=== PATIENT | male | born 1965 | race Caucasian/White ===

== ENCOUNTER 2021-11-19 11:53 | Inpatient (IN) | payer SELFPAY ==
[~2021-11-19 11:53] MED LIST: EPINEPHrine 1 MG/10 ML SYRINGE ONE; SODIUM BICARB 8.4% 50 MEQ/50 ML SYRINGE IV ONE
[2021-11-19] MEDS ORDERED: dexAMETHasone 4 MG/ML VIAL IV ONE (13:38)
[2021-11-19] MEDS ORDERED: cefTRIAXone/NS 2 GM/100 ML 2 GM/100 ML BAG IV ONE (13:44)
[2021-11-19] MEDS ORDERED: AZITHROMYCIN/NS 500 MG/250 ML 500 MG/250 ML BAG IV ONE (13:44)
--- NOTE | 2021-11-19 13:44 | Emergency Department Report ---
HPI - General Chief Complaint: Dyspnea/Respdistress Time Seen by Provider: 11/19/21 13:25 - HPI HPI: 56-year-old male with history of CAD, CHF, and DM 2 brought in by EMS in respiratory distress with hypoxia. According to the EMS report, the patient has been ill for the past week with URI symptoms. He has been coughing up blood. His initial oxygen saturation on arrival by EMS was 86% on room air which improved to 95% on 3 L. He was noted to be afebrile with normal remaining vitals. When I speak to the patient he is in obvious respiratory distress. He states that for 1 week he had URI symptoms including cough and congestion as well as fever and body aches. Over the past couple days he has been coughing up phlegm and blood-tinged mucus. He is also developed significant shortness of breath at rest. He says he has been out of his diuretic for the past 3 months due to insurance issues. He is not vaccinated against COVID-19. He denies any associated headache, vision change, chest pain, abdominal pain, focal weakness, sensory changes, or any other notable complaints. It is very difficult for him to speak because of his respiratory distress and he can only speak and few word at a time and therefore further details of the HPI are highly limited due to his current clinical condition. ED Past Medical Hx - Past Medical History Previous Medical History?: Yes Hx Congestive Heart Failure: Yes Hx Diabetes: Yes ED Review of Systems ROS: Stated complaint: SOB Other details as noted in HPI Comment: Unobtainable due to pts medical conditions Physical Exam - Physical Exam Vital Signs: Vital Signs 11/19/21 11:58 Temperature 98.2 F Pulse Rate 99 H Respiratory 24 Rate Blood Pressure 150/85 [Right] O2 Sat by Pulse 99 Oximetry Physical Exam: GENERAL: Well developed and well nourished. Severe respiratory distress HEAD: Normocephalic. No obvious signs of trauma. ENT: Dry mucous membranes. EYES: Extraocular movements are intact. Pupils are equal round and reactive to light bilaterally NECK: Supple. Full ROM is intact. Trachea is midline. LUNGS: Severe respiratory distress with accessory muscle use. Equal chest rise bilaterally. There are scattered rales throughout the bilateral lung sullivan as well as rhonchi. No wheezes appreciated. CARDIOVASCULAR: Tachycardic but with regular rhythm. No murmurs or rubs. VASCULAR: Cap refill < 2 seconds. 2+ edema of the bilateral lung sullivan ABDOMEN: Abdomen is soft and nondistended. There is no significant tenderness, guarding or rebound. SKIN: Skin is warm and dry NEURO: Patient is awake, alert, and oriented but speaking only in a couple words at a time. ultrasound specialist II-XII grossly intact. No focal deficits. Normal motor and sensory exam throughout. MUSCULOSKELETAL: No obvious deformities. No significant tenderness. Normal ROM throughout. BACK/SPINE: No midline tenderness or step-offs of the C/T/L spine. No costovertebral angle tenderness. ED Course Vital Signs 11/19/21 11:58 Temperature 98.2 F Pulse Rate 99 H Respiratory 24 Rate Blood Pressure 150/85 [Right] O2 Sat by Pulse 99 Oximetry ED Medical Decision Making - Lab Data Result diagrams: 11/19/21 13:56 11/19/21 13:56 Lab Results 11/19/21 11/19/21 11/19/21 Range/Units 13:56 13:56 13:56 WBC 6.3 (4.5-11.0) K/mm3 RBC 6.06 H (3.65-5.03) M/mm3 Hgb 14.9 (11.8-15.2) gm/dl Hct 46.7 H (35.5-45.6) % MCV 77 L (84-94) fl MCH 25 L (28-32) pg MCHC 32 (32-34) % RDW 14.5 (13.2-15.2) % Plt Count 184 (140-440) K/mm3 Lymph % (Auto) 17.2 (13.4-35.0) % [place] % (Auto) 7.6 H (0.0-7.3) % Eos % (Auto) 0.1 (0.0-4.3) % Baso % (Auto) 0.2 (0.0-1.8) % Lymph # (Auto) 1.1 L (1.2-5.4) K/mm3 [place] # (Auto) 0.5 (0.0-0.8) K/mm3 Eos # (Auto) 0.0 (0.0-0.4) K/mm3 Baso # (Auto) 0.0 (0.0-0.1) K/mm3 Seg Neutrophils % 74.9 H (40.0-70.0) % Seg Neutrophils # 4.7 (1.8-7.7) K/mm3 PT (12.2-14.9) Sec. INR (0.87-1.13) APTT (24.2-36.6) Sec. D-Dimer (0-234) ng/mlDDU ABG pH (7.350-7.450) pH Units ABG pCO2 mm Hg ABG pO2 (80.0-90.0) mm Hg ABG HCO3 (20.0-26.0) mmol/L ABG O2 Saturation (95.0-99.0) % ABG O2 Content (0.0-44) ABG Base Excess (-2.0-3.0) mmol/L ABG Hemoglobin (14.0-18.0) gm/dl ABG Carboxyhemoglobin (0.0-5.0) % ABG Methemoglobin (0.0-1.5) % Oxyhemoglobin (95.0-99.0) % FiO2 % Sodium (137-145) mmol/L Potassium (3.6-5.0) mmol/L Chloride (98-107) mmol/L Carbon Dioxide (22-30) mmol/L Anion Gap mmol/L BUN (9-20) mg/dL Creatinine (0.8-1.3) mg/dL Estimated GFR ml/min BUN/Creatinine Ratio % Glucose (75-100) mg/dL Lactic Acid 3.60 H* (0.7-2.0) mmol/L Calcium (8.4-10.2) mg/dL Magnesium (1.7-2.3) mg/dL Ferritin (30.0-300.0) ng/mL Total Bilirubin (0.1-1.2) mg/dL Direct Bilirubin (0-0.2) mg/dL Indirect Bilirubin mg/dL AST (5-40) units/L ALT (7-56) units/L Alkaline Phosphatase (35-129) units/L Lactate Dehydrogenase (91-180) units/L Troponin T < 0.010 (0.00-0.029) ng/mL C-Reactive Protein (0.00-1.30) mg/dL NT-Pro-B Natriuret Pep (0-900) pg/mL Total Protein (6.3-8.2) g/dL Albumin (3.9-5) g/dL Albumin/Globulin Ratio % Lipase (13-60) units/L 11/19/21 11/19/21 11/19/21 Range/Units 13:56 13:56 13:56 WBC (4.5-11.0) K/mm3 RBC (3.65-5.03) M/mm3 Hgb (11.8-15.2) gm/dl Hct (35.5-45.6) % MCV (84-94) fl MCH (28-32) pg MCHC (32-34) % RDW (13.2-15.2) % Plt Count (140-440) K/mm3 Lymph % (Auto) (13.4-35.0) % [place] % (Auto) (0.0-7.3) % Eos % (Auto) (0.0-4.3) % Baso % (Auto) (0.0-1.8) % Lymph # (Auto) (1.2-5.4) K/mm3 [place] # (Auto) (0.0-0.8) K/mm3 Eos # (Auto) (0.0-0.4) K/mm3 Baso # (Auto) (0.0-0.1) K/mm3 Seg Neutrophils % (40.0-70.0) % Seg Neutrophils # (1.8-7.7) K/mm3 PT 14.8 (12.2-14.9) Sec. INR 1.05 (0.87-1.13) APTT 47.8 H (24.2-36.6) Sec. D-Dimer 880.43 H (0-234) ng/mlDDU ABG pH (7.350-7.450) pH Units ABG pCO2 mm Hg ABG pO2 (80.0-90.0) mm Hg ABG HCO3 (20.0-26.0) mmol/L ABG O2 Saturation (95.0-99.0) % ABG O2 Content (0.0-44) ABG Base Excess (-2.0-3.0) mmol/L ABG Hemoglobin (14.0-18.0) gm/dl ABG Carboxyhemoglobin (0.0-5.0) % ABG Methemoglobin (0.0-1.5) % Oxyhemoglobin (95.0-99.0) % FiO2 % Sodium 136 L (137-145) mmol/L Potassium 5.0 (3.6-5.0) mmol/L Chloride 99.0 (98-107) mmol/L Carbon Dioxide 16 L (22-30) mmol/L Anion Gap 26 mmol/L BUN 28 H (9-20) mg/dL Creatinine 2.0 H (0.8-1.3) mg/dL Estimated GFR 35 ml/min BUN/Creatinine Ratio 14 % Glucose 232 H 237 H (75-100) mg/dL Lactic Acid (0.7-2.0) mmol/L Calcium 9.1 (8.4-10.2) mg/dL Magnesium 2.60 H (1.7-2.3) mg/dL Ferritin (30.0-300.0) ng/mL Total Bilirubin 0.50 (0.1-1.2) mg/dL Direct Bilirubin 0.2 (0-0.2) mg/dL Indirect Bilirubin 0.3 mg/dL AST 88 H (5-40) units/L ALT 25 (7-56) units/L Alkaline Phosphatase 61 (35-129) units/L Lactate Dehydrogenase 720 H (91-180) units/L Troponin T (0.00-0.029) ng/mL C-Reactive Protein 33.10 H (0.00-1.30) mg/dL NT-Pro-B Natriuret Pep 1272 H (0-900) pg/mL Total Protein 9.0 H (6.3-8.2) g/dL Albumin 3.7 L (3.9-5) g/dL Albumin/Globulin Ratio 0.7 % Lipase 58 (13-60) units/L 11/19/21 11/19/21 Range/Units 13:56 14:52 WBC (4.5-11.0) K/mm3 RBC (3.65-5.03) M/mm3 Hgb (11.8-15.2) gm/dl Hct (35.5-45.6) % MCV (84-94) fl MCH (28-32) pg MCHC (32-34) % RDW (13.2-15.2) % Plt Count (140-440) K/mm3 Lymph % (Auto) (13.4-35.0) % [place] % (Auto) (0.0-7.3) % Eos % (Auto) (0.0-4.3) % Baso % (Auto) (0.0-1.8) % Lymph # (Auto) (1.2-5.4) K/mm3 [place] # (Auto) (0.0-0.8) K/mm3 Eos # (Auto) (0.0-0.4) K/mm3 Baso # (Auto) (0.0-0.1) K/mm3 Seg Neutrophils % (40.0-70.0) % Seg Neutrophils # (1.8-7.7) K/mm3 PT (12.2-14.9) Sec. INR (0.87-1.13) APTT (24.2-36.6) Sec. D-Dimer (0-234) ng/mlDDU ABG pH 7.413 (7.350-7.450) pH Units ABG pCO2 27.3 mm Hg ABG pO2 276.3 H (80.0-90.0) mm Hg ABG HCO3 17.1 L (20.0-26.0) mmol/L ABG O2 Saturation 99.5 H (95.0-99.0) % ABG O2 Content 20.5 (0.0-44) ABG Base Excess -5.9 L (-2.0-3.0) mmol/L ABG Hemoglobin 14.4 (14.0-18.0) gm/dl ABG Carboxyhemoglobin 1.0 (0.0-5.0) % ABG Methemoglobin 0.6 (0.0-1.5) % Oxyhemoglobin 97.9 (95.0-99.0) % FiO2 100 % Sodium (137-145) mmol/L Potassium (3.6-5.0) mmol/L Chloride (98-107) mmol/L Carbon Dioxide (22-30) mmol/L Anion Gap mmol/L BUN (9-20) mg/dL Creatinine (0.8-1.3) mg/dL Estimated GFR ml/min BUN/Creatinine Ratio % Glucose (75-100) mg/dL Lactic Acid (0.7-2.0) mmol/L Calcium (8.4-10.2) mg/dL Magnesium (1.7-2.3) mg/dL Ferritin > 2000.0 H (30.0-300.0) ng/mL Total Bilirubin (0.1-1.2) mg/dL Direct Bilirubin (0-0.2) mg/dL Indirect Bilirubin mg/dL AST (5-40) units/L ALT (7-56) units/L Alkaline Phosphatase (35-129) units/L Lactate Dehydrogenase (91-180) units/L Troponin T (0.00-0.029) ng/mL C-Reactive Protein (0.00-1.30) mg/dL NT-Pro-B Natriuret Pep (0-900) pg/mL Total Protein (6.3-8.2) g/dL Albumin (3.9-5) g/dL Albumin/Globulin Ratio % Lipase (13-60) units/L - EKG Data -: EKG Interpreted by Tn - EKG Data 11/19/21 13:46 Sinus tachycardia. Right axis deviation. Normal intervals. No ectopy. Poor R wave progression in precordial leads. No significant ST segment or T wave abnormalities. - Radiology Data Radiology results: report reviewed - Medical Decision Making 56-year-old male with history of CAD, CHF, and DM2 presenting in respiratory distress. Patient has had 1 week of URI symptoms and now complains of shortness of breath and hemoptysis. He also reports has been out of his diuretic for 3 months. Patient initially had an oxygen saturation of 86% on room air which improved to 95% on 3 L. He was afebrile and with normal vital signs other than elevated heart rate in the high 90s. However, by the time that I evaluated the patient he was satting in the mid 80s on 6 L nasal cannula in severe respiratory distress. Lung auscultation reveals scattered rales at the bilateral lung sullivan with scattered rhonchi as well. Given his work of breathing and hypoxia I have initiated BiPAP. We will perform broad work-up with full set of labs including sepsis order set with cultures. We will obtain an ABG. We will give 6 mg of Decadron given suspicion for possible COVID-19 pneumonia given that he is unvaccinated. We will also order azithromycin and ceftriaxone for suspected pneumonia. Given that the patient has a history of CHF, has been out of his diuretics for several months, and is presenting with severe respiratory distress, we will hold off on IV fluids at this time so as to not worsen his respiratory status. We will order CTA of the chest to assess for evidence of pulmonary embolism versus pneumonia, especially in the context of hemoptysis. Labs reveal no significant leukocytosis or anemia. Creatinine is elevated at 2.0 with BUN of 28. Potassium is mildly elevated at 5.. BNP is elevated at 1272. D-dimer is positive and elevated at 880.4. Chest x-ray reveals patchy parenchymal disease bilaterally with interpretation of pulmonary edema versus atypical pneumonia versus diffuse alveolar damage. Cardiac silhouette is mildly enlarged as well. Lactic acid is elevated at 3.6. Given this finding I have added on broad- spectrum vancomycin. CTA of the chest is still pending. On repeat assessment, the patient appears more comfortable on BiPAP. On repeat assessment again at 4:30 PM, the patient is now severely diaphoretic and with respiratory distress satting in the high 80s on BiPAP. Given his clinical condition I discussed options with the patient and we agreed that the best course of action is to proceed with emergent intubation and mechanical ventilation. Patient was successfully intubated using a 7-0 ET tube. We will now give 30 mL/kg of IV fluid for his sepsis I updated the patient's about his current critical condition and she expressed understanding and agreement with our plan of care for admission and further management. I spoke with Dr. Bañuelos of critical care medicine regarding the case and he accepts the patient for admission to the ICU Spoke with Dr. Linares, the on-call hospitalist regarding the case and he accepts the patient for admission and will assume care Critical Care Time: Yes Critical care time in (mins) excluding proc time.: 45 Critical care attestation.: If time is entered above; I have spent that time in minutes in the direct care of this critically ill patient, excluding procedure time. Critical care time was spent in the evaluation/assessment, work-up, and management of hypoxic respiratory failure with pneumonia and sepsis requiring supplemental oxygen and eventually BiPAP and intubation with mechanical ventilation as well as consultation with specialist and multiple reevaluations and reassessments. ED Disposition Clinical Impression: Sepsis with acute hypoxic respiratory failure, Suspected COVID-19 virus infection, STEVEN (acute kidney injury), Hyperglycemia Disposition: 09 ADMITTED INPATIENT Is pt being admited?: Yes Condition: Critical
--- NOTE | 2021-11-19 14:14 | XRay Report ---
CHEST 1 VIEW 11/19/2021 1:06 PM INDICATION / CLINICAL INFORMATION: Respiratory distress. COMPARISON: None available. FINDINGS: SUPPORT DEVICES: None. HEART / MEDIASTINUM: The heart appears mildly enlarged. Pulmonary vasculature is difficult to evaluat e. LUNGS / PLEURA: There are moderately severe patchy parenchymal opacities throughout both lungs, right greater than left. No pleural effusion. No pneumothorax. ADDITIONAL FINDINGS: No significant additional findings. IMPRESSION: Moderately severe patchy parenchymal disease bilaterally, right greater than left. Differ ential diagnosis includes pulmonary edema, atypical causes of pneumonia, aspiration and diffuse alveo lar damage. Signer Name: Tomás Alanis MD Signed: 11/19/2021 2:10 PM Workstation Name: [id number]
[2021-11-19 14:21] LABS: Basophils % (Auto) 0.2 % (0.0-1.8); Eosinophils % (Auto) 0.1 % (0.0-4.3); Hematocrit 46.7 % (35.5-45.6); Hemoglobin 14.9 gm/dl (11.8-15.2); Lymphocytes # (Auto) 1.1 K/mm3 (1.2-5.4); Lymphocytes % (Auto) 17.2 % (13.4-35.0); Mean Corpuscular HGB Conc 32 % (32-34); Mean Corpuscular Volume 77 fl (84-94); Monocytes # (Auto) 0.5 K/mm3 (0.0-0.8); Monocytes % (Auto) 7.6 % (0.0-7.3); Platelet Count 184 K/mm3 (140-440); Red Blood Count 6.06 M/mm3 (3.65-5.03); Red Cell Distribution Width 14.5 % (13.2-15.2)
[2021-11-19 14:29] LABS: INR 1.05 (0.87-1.13)
[2021-11-19 14:30] LABS: Partial Thromboplastin Time 47.8 Sec. (24.2-36.6)
[2021-11-19 14:47] LABS: Albumin 3.7 g/dL (3.9-5); Bilirubin,Direct 0.2 mg/dL (0-0.2); Calcium 9.1 mg/dL (8.4-10.2)
[2021-11-19 15:01] LABS: ABG Base Excess -5.9 mmol/L (-2.0-3.0); ABG HCO3 17.1 mmol/L (20.0-26.0); ABG Methemoglobin 0.6 % (0.0-1.5); ABG Oxygen Saturation 99.5 % (95.0-99.0); ABG PCO2 27.3 mm Hg; ABG PH 7.413 pH Units (7.350-7.450)
[2021-11-19 15:07] LABS: ABG PO2 276.3 mm Hg (80.0-90.0)
[2021-11-19 15:17] LABS: C-Reactive Protein 33.1 mg/dL (0.00-1.30)
[2021-11-19] MEDS ORDERED: VANCOMYCIN/NS 1 GM/250 ML 1 GM/250 ML BAG IV ONE (15:39)
[2021-11-19] MEDS ORDERED: ETOMIDATE 20 MG/10 ML INJ IV ONE (17:00)
[2021-11-19] MEDS ORDERED: ROCURONIUM 50 MG/5 ML INJ IV ONE (17:00)
[2021-11-19] MEDS ORDERED: SODIUM CHLORIDE 0.9% 1000 ML 1,000 ML IV ONE ×2 (17:00)
[2021-11-19] MEDS ORDERED: SODIUM CHLORIDE 0.9% 500 ML 500 ML IV ONE (17:00)
--- NOTE | 2021-11-19 17:22 | XRay Report ---
CHEST 1 VIEW 11/19/2021 5:02 PM INDICATION / CLINICAL INFORMATION: Confirm ET tube placement. COMPARISON: Earlier today at 1:41 PM FINDINGS: SUPPORT DEVICES: There is a new endotracheal tube with the tip 4.5 cm above the ermias. HEART / MEDIASTINUM: Cardiomegaly is stable. LUNGS / PLEURA: Moderately severe bilateral parenchymal opacities, right greater than left, have not changed significantly. No significant pleural effusion. No pneumothorax. ADDITIONAL FINDINGS: No significant additional findings. IMPRESSION: Endotracheal tube in satisfactory position. Signer Name: Tomás Alanis MD Signed: 11/19/2021 5:18 PM Workstation Name: [id number]
[2021-11-19] MEDS ORDERED: ALBUTEROL 2.5 MG/3 ML NEBU IH PRN (17:47)
[2021-11-19] MEDS ORDERED: ACETAMINOPHEN 650 MG RECT SUPP PR PRN (17:47)
[2021-11-19] MEDS ORDERED: HYDROmorphone 1 MG/1 ML INJ IV PRN ×2 (17:47→17:51)
[2021-11-19] MEDS ORDERED: oxyCODONE /ACETAMINOPHEN 5-325MG TAB PO PRN (17:47)
--- NOTE | 2021-11-19 17:50 | History and Physical Report ---
History of Present Illness Chief complaint: He was coughing up blood History of present illness: 56 YO Male with CAD, DM, CHF presents to ED for evaluation. Patient is intubated and on ventilatory support at the time my evaluation vented to provide history. Patient history taken EMS staff, ED staff, 2 of the patient's who was made available by telephone for interview. As per the patient has experienced upper respiratory symptoms for the past week and subsequent developed the symptoms of coughing up blood. Patient was seen and evaluated at an outside hospital and was treated with supportive care and discharged home. Patient experienced worsening symptoms over the past 3 days. EMS notified and upon arrival the patient was found to be in distress and subsequent transported laceration further care and evaluation of the aforementioned symptoms. The patient was seen and evaluated in the emergency department. All lab and imaging studies reviewed. Patient was found to have a pulse oximetry of 86% on room air and was subsequently placed on supplemental oxygen without improvement in symptoms. The patient was then able to protect his airway and using excessive effort to breathe. Patient was unable to speak in complete sentences. The patient was found to be tripoding, using accessory muscles to breathe. Patient was subsequently intubated and placed on ventilatory support. Patient chest x- ray revealed bilateral pneumonia complicated by sepsis, metabolic acidosis, and toxic metabolic encephalopathy. Patient admitted to ICU due to increased risk of worsening symptoms. Critical care team consulted. Patient reports fever, chills, malaise, body aches, congestion, cough. No prior admission for review. No medication listed at time of admission reconciliation. Advanced care planning conducted in ED. Patient is not vaccinated against COVID-19. Past History Past Medical History: CAD, diabetes, heart failure Past Surgical History: Other (Unable to obtain) Social history: , lives with family. denies: smoking, alcohol abuse, prescription drug abuse Family history: hypertension Medications and Allergies Allergies Allergy/AdvReac Type Severity Reaction Status Date / Time No Known Allergies Allergy Unverified 11/19/21 11:58 Active Meds: Active Medications Acetaminophen (Acetaminophen 650 Mg Rect Supp) 650 mg KS Q6H PRN PRN Reason: Pain MILD(1-3)/Fever >100.5/HINKLE Albuterol (Albuterol 2.5 Mg/3 Ml Nebu) 2.5 mg IH Q3HRT PRN PRN Reason: Shortness Of Breath Hydromorphone HCl (Hydromorphone 1 Mg/1 Ml Inj) 0.5 mg IV Q23H PRN PRN Reason: Pain , Severe (7-10) Sodium Chloride (Nacl 0.9% 1000 Ml) 1,000 mls @ 999 mls/hr IV BOLUS ONE Stop: 11/19/21 18:00 Sodium Chloride (Nacl 0.9% 1000 Ml) 1,000 mls @ 999 mls/hr IV BOLUS ONE Stop: 11/19/21 18:00 Propofol (Diprivan 10 Mg/Ml) 1,000 mg in 100 mls @ 2.177 mls/hr IV TITR JERMAINE; Protocol Oxycodone/Acetaminophen (Oxycodone /Acetaminophen 5-325mg Tab) 1 tab PO Q16H PRN PRN Reason: Pain, Moderate (4-6) Sodium Chloride (Sodium Chloride 0.9% 10 Ml Flush Syringe) 10 ml IV BID JERMAINE Sodium Chloride (Sodium Chloride 0.9% 10 Ml Flush Syringe) 10 ml IV PRN PRN PRN Reason: LINE FLUSH Review of Systems ROS unobtainable: due to endotracheal tube, due to mental status Exam - Constitutional Vitals: Temp Pulse Resp BP Pulse Ox 98.6 F 135 H 28 H 158/107 81 L 11/19/21 15:33 11/19/21 17:05 11/19/21 15:29 11/19/21 17:05 11/19/21 17:05 General appearance: Present: severe distress - EENT Eyes: Present: PERRL ENT: clear oral mucosa, hearing decreased - Neck Neck: Present: supple, normal ROM - Respiratory Respiratory effort: labored, pursed lips, accessory muscle use, stridor Respiratory: bilateral: diminished, rhonchi - Cardiovascular Rhythm: other (Tachycardia) - Extremities Extremities: pulses symmetrical, No edema Peripheral Pulses: abnormal (Capillary refill greater than 3.5 seconds) - Abdominal General gastrointestinal: Present: soft, non-tender, non-distended Male genitourinary: Present: normal - Integumentary Integumentary: Present: dry, clammy, decreased turgor - Musculoskeletal Musculoskeletal: generalized weakness - Psychiatric Psychiatric: no appropriate mood/affect, no intact judgment & insight, no memory intact - Neurologic Neurologic: CNII-XII intact, no focal deficits, moves all extremities, no gait normal HEART Score - HEART Score Troponin: Troponin T < 0.010 ng/mL (0.00-0.029) 11/19/21 13:56 Results - Labs CBC & Chem 7: 11/19/21 13:56 11/19/21 13:56 Labs: Abnormal lab results 11/19/21 11/19/21 11/19/21 Range/Units 13:56 13:56 13:56 RBC 6.06 H (3.65-5.03) M/mm3 Hct 46.7 H (35.5-45.6) % MCV 77 L (84-94) fl MCH 25 L (28-32) pg [place] % (Auto) 7.6 H (0.0-7.3) % Lymph # (Auto) 1.1 L (1.2-5.4) K/mm3 Seg Neutrophils % 74.9 H (40.0-70.0) % APTT 47.8 H (24.2-36.6) Sec. D-Dimer 880.43 H (0-234) ng/mlDDU ABG pO2 (80.0-90.0) mm Hg ABG HCO3 (20.0-26.0) mmol/L ABG O2 Saturation (95.0-99.0) % ABG Base Excess (-2.0-3.0) mmol/L Sodium (137-145) mmol/L Carbon Dioxide (22-30) mmol/L BUN (9-20) mg/dL Creatinine (0.8-1.3) mg/dL Glucose (75-100) mg/dL Lactic Acid 3.60 H* (0.7-2.0) mmol/L Magnesium (1.7-2.3) mg/dL Ferritin (30.0-300.0) ng/mL AST (5-40) units/L Lactate Dehydrogenase (91-180) units/L C-Reactive Protein (0.00-1.30) mg/dL NT-Pro-B Natriuret Pep (0-900) pg/mL Total Protein (6.3-8.2) g/dL Albumin (3.9-5) g/dL 11/19/21 11/19/21 11/19/21 Range/Units 13:56 13:56 13:56 RBC (3.65-5.03) M/mm3 Hct (35.5-45.6) % MCV (84-94) fl MCH (28-32) pg [place] % (Auto) (0.0-7.3) % Lymph # (Auto) (1.2-5.4) K/mm3 Seg Neutrophils % (40.0-70.0) % APTT (24.2-36.6) Sec. D-Dimer (0-234) ng/mlDDU ABG pO2 (80.0-90.0) mm Hg ABG HCO3 (20.0-26.0) mmol/L ABG O2 Saturation (95.0-99.0) % ABG Base Excess (-2.0-3.0) mmol/L Sodium 136 L (137-145) mmol/L Carbon Dioxide 16 L (22-30) mmol/L BUN 28 H (9-20) mg/dL Creatinine 2.0 H (0.8-1.3) mg/dL Glucose 232 H 237 H (75-100) mg/dL Lactic Acid (0.7-2.0) mmol/L Magnesium 2.60 H (1.7-2.3) mg/dL Ferritin > 2000.0 H (30.0-300.0) ng/mL AST 88 H (5-40) units/L Lactate Dehydrogenase 720 H (91-180) units/L C-Reactive Protein 33.10 H (0.00-1.30) mg/dL NT-Pro-B Natriuret Pep 1272 H (0-900) pg/mL Total Protein 9.0 H (6.3-8.2) g/dL Albumin 3.7 L (3.9-5) g/dL 11/19/21 Range/Units 14:52 RBC (3.65-5.03) M/mm3 Hct (35.5-45.6) % MCV (84-94) fl MCH (28-32) pg [place] % (Auto) (0.0-7.3) % Lymph # (Auto) (1.2-5.4) K/mm3 Seg Neutrophils % (40.0-70.0) % APTT (24.2-36.6) Sec. D-Dimer (0-234) ng/mlDDU ABG pO2 276.3 H (80.0-90.0) mm Hg ABG HCO3 17.1 L (20.0-26.0) mmol/L ABG O2 Saturation 99.5 H (95.0-99.0) % ABG Base Excess -5.9 L (-2.0-3.0) mmol/L Sodium (137-145) mmol/L Carbon Dioxide (22-30) mmol/L BUN (9-20) mg/dL Creatinine (0.8-1.3) mg/dL Glucose (75-100) mg/dL Lactic Acid (0.7-2.0) mmol/L Magnesium (1.7-2.3) mg/dL Ferritin (30.0-300.0) ng/mL AST (5-40) units/L Lactate Dehydrogenase (91-180) units/L C-Reactive Protein (0.00-1.30) mg/dL NT-Pro-B Natriuret Pep (0-900) pg/mL Total Protein (6.3-8.2) g/dL Albumin (3.9-5) g/dL Assessment and Plan - Patient Problems (1) Sepsis Current Visit: Yes Status: Acute Qualifiers: Sepsis acute organ dysfunction status: with acute organ dysfunction Severe sepsis acute organ dysfunction type: acute respiratory failure Acute respiratory failure type: with hypoxia Severe sepsis shock status: with septic shock Plan to address problem: Sepsis complicated by shock: Sepsis protocol: CBC, CMP, IV antibiotic therapy, IV fluid resuscitation therapy, chest x-ray, blood culture, IV antibiotic therapy, maintain mean arterial pressure greater than equal to 65, monitor fluid output every shift, serial lactic acid level, IV pressor support as clinically indicated. The high probability of a clinically significant, sudden or life threatening deterioration of the [cardiac, pulmonary, neuro, renal] system(s) required my full and direct attention, intervention and personal management. The aggregate critical care time was [120] minutes. This time is in addition to time spent performing reported procedures but includes the following: [x] Data Review and interpretation [x] Patient assessment and monitoring of vital signs [x] Documentation [x] Medication orders and management (2) Acute hypoxemic respiratory failure Current Visit: Yes Status: Acute Plan to address problem: Chest x-ray, supplemental oxygen, pulse oximetry on arterial blood gas, patient intubated and placed on ventilatory support. Wean vent as tolerated, critical care team consulted, SBT daily, sedation holiday, (3) Bilateral pneumonia Current Visit: Yes Status: Acute Plan to address problem: Pneumonia protocol: Chest x-ray, CBC, CMP, supplemental oxygen, pulse oximetry, nebulizer therapy, IV antibiotic therapy (4) Suspected 2019 novel coronavirus infection Current Visit: Yes Status: Acute Plan to address problem: Coronavirus protocol: IV antibiotic therapy, IV steroid therapy, vitamin C therapy, vitamin D therapy, zinc therapy, prophylactic anticoagulation (5) Metabolic acidosis Current Visit: Yes Status: Acute Plan to address problem: IV fluid resuscitation therapy, BMP, repeat BMP in a.m. (6) Toxic metabolic encephalopathy Current Visit: Yes Status: Acute Plan to address problem: IV fluid resuscitation therapy, treat sepsis, CT scan head when patient is medically stable. (7) DVT prophylaxis Current Visit: Yes Status: Acute Plan to address problem: SCD to bilateral lower extremities while in bed, prophylactic anticoagulation (8) Advance care planning Current Visit: Yes Status: Acute Plan to address problem: Disease education conducted, care plan discussed, diagnoses discussed, prognosis discussed, patient acknowledges understanding and agreement with care plan, +30 minutes.
[2021-11-19] MEDS ORDERED: SODIUM CHLORIDE 0.9% 1000 ML IV SOLN IV ONE (17:51)
[2021-11-19] MEDS ORDERED: ACETAMINOPHEN 325 MG TAB PO PRN (17:51)
[2021-11-19 18:04] LABS: ABG Base Excess -10.5 mmol/L (-2.0-3.0); ABG HCO3 17.4 mmol/L (20.0-26.0); ABG Methemoglobin 0.7 % (0.0-1.5); ABG Oxygen Saturation 87.8 % (95.0-99.0); ABG PCO2 45.9 mm Hg; ABG PO2 66.1 mm Hg (80.0-90.0)
[2021-11-19 18:08] LABS: ABG PH 7.197 pH Units (7.350-7.450)
[2021-11-19] MEDS ORDERED: methylPREDNISolone Sod Succinate 40 MG/1 ML INJ IV SCH (18:30)
[2021-11-19 18:34] VITALS: BP 159/105
[2021-11-19 18:35] LABS: Bilirubin,Urine NEG (Negative); Blood,Urine NEG (Negative); Color,Urine Yellow (Yellow); Urobilinogen,Urine < 2.0 mg/dL (<2.0)
[2021-11-19] MEDS ORDERED: AMIODARONE 300 MG in DEXTROSE 5% IN WATER 100 ML IV STA (18:40)
[2021-11-19 18:55] LABS: Protein,Urine >500 mg/dL (Negative)
[2021-11-19] MEDS ORDERED: HEPARIN 10,000 UNITS/10 ML VIAL IV PRN (18:56)
[2021-11-19] MEDS ORDERED: NORepinephrine/NS 8 MG-250 ML 8 MG/250 ML INFUS..BTL IV SCH (20:00)
--- NOTE | 2021-11-19 20:01 | Procedure Note ---
Date of procedure: 11/19/21 Pre-op diagnosis: sepsis, covid 19, respiratory failure Post-op diagnosis: same Procedure: Right femoral vein Central Line Placement under ultrasound guidance The patient was prepped and draped in the usual sterile fashion. A timeout was taken to verify the correct patient, correct procedure, and correct operative site. Ultrasound was utilized to localize the right femoral vein without difficulty. Local anesthesia was obtained with 1% lidocaine. The Seldinger technique was utilized to access the right femoral vein under ultrasound guidance. A seeker needle was advanced into the right femoral vein under ultrasound guidance. A guidewire was then advanced into the right femoral vein and the seeker needle was removed over the guidewire. A scalpel was used to incise the skin at the insertion site. A dilator was then placed over the guidewire into the right femoral vein and subsequently removed over the guidewire. A preflushed triple-lumen catheter was then advanced into the right femoral vein without difficulty and the guidewire subsequently removed. All 3 ports flush and draw with ease. The triple-lumen catheter was then sutured in place with 3-0 nylon suture. Complications none, specimens none estimated blood loss minimal. Surgeon: CAIN REESE Estimated blood loss: minimal Pathology: none Condition: critical Disposition: ICU
--- NOTE | 2021-11-19 20:16 | Procedure Note ---
Date of procedure: 11/19/21 Pre-op diagnosis: hypoxic respiratory failure Post-op diagnosis: same Procedure: A time out was performed. My hands were washed immediately prior to the procedure. The patient was placed on a mold design engineer including continuous pulse oximetry. Rapid Sequence Intubation was conducted. The patient received 20 mg of etomidate for induction and 100 mg of rocuronium for adequate paralysis. Using a fiberoptic laryngoscope and a size 7-0 endotracheal tube with stylet, the patient was intubated on the 1 attempt. The stylet was removed and cuff balloon was inflated. Appropriate endotracheal tube position was confirmed by direct visualization of vocal cord passage, fogging of the tube, CO2 colormetric indicator and symmetric breath sounds. The tube was secured at 22 cm at the lips. Post intubation chest x-ray is pending at this time.
--- NOTE | 2021-11-19 20:17 | Death Summary ---
Summary - Providers Consults: 11/19/21 17:28 Consult to Physician [CONS] Routine Comment: Consulting Provider: PHILIPP TEAGUE Physician Instructions: Reason For Exam: vent management 11/19/21 17:54 Consult to Physician [CONS] Routine Comment: Consulting Provider: TAVIA MIRANDA Physician Instructions: Reason For Exam: pui Attending: CAIN REESE - summary Date of admission: 11/19/21 17:47 Date of : 11/19/21 Reason for admission: Sepsis, pneumonia, acute hypoxemic respiratory failure, COVID-19 Significant findings: 56 YO Male with CAD, DM, CHF presented to ED for evaluation. Patient was intubated and on ventilatory support at the time my evaluation and unable to provide history. Patient history taken EMS staff, ED staff, 2 of the patient's who was made available by telephone for interview. As per the patient had experienced upper respiratory symptoms for the past week and subsequent developed the symptoms of coughing up blood. Patient was seen and evaluated at an outside hospital and was treated with supportive care and discharged home. Patient experienced worsening symptoms over the past 3 days. EMS notified and upon arrival the patient was found to be in distress and subsequent transported to [facility] for further care and evaluation of the aforementioned symptoms. The patient was seen and evaluated in the emergency department. All lab and imaging studies reviewed. Patient was found to have a pulse oximetry of 86% on room air and was subsequently placed on supplemental oxygen without improvement in symptoms. The patient was then able to protect his airway and using excessive effort to breathe. Patient was unable to speak in complete sentences. The patient was found to be tripoding, using accessory muscles to breathe. Patient was subsequently intubated and placed on ventilatory support. Patient chest x- ray revealed bilateral pneumonia complicated by sepsis, metabolic acidosis, and toxic metabolic encephalopathy. Patient admitted to ICU due to increased risk of worsening symptoms. Critical care team consulted. Patient prognosis worsened during hospital course and patient became hemodynamically unstable. Patient subsequent developed cardiac arrest and was treated in accordance with ACLS with initial return of perfusing cardiac rhythm. Patient experienced multiple episodes of asystolic arrest. Patient was found to be asystolic with absent neurologic function, absent brainstem function, absent lung sounds. Patient pronounced at 1910 hrs. - Final diagnosis (1) Sepsis Qualifiers: Sepsis acute organ dysfunction status: with acute organ dysfunction Severe sepsis acute organ dysfunction type: acute respiratory failure Acute respiratory failure type: with hypoxia Severe sepsis shock status: with septic shock Note: Final diagnosis: (2) Acute hypoxemic respiratory failure Note: Final diagnosis: (3) Bilateral pneumonia Note: Final diagnosis: (4) Suspected 2019 novel coronavirus infection Note: Final diagnosis: (5) Metabolic acidosis Note: Final diagnosis: (6) Toxic metabolic encephalopathy Note: Final diagnosis: (7) DVT prophylaxis Note: Final diagnosis: (8) Advance care planning Note: Final diagnosis:
--- NOTE | 2021-11-19 20:19 | Event Note ---
Date: 11/19/21 A [employer] [facility] was called. I presented to the bedside the patient was found in asystolic arrest. The patient was treated in accordance with ACLS protocol with return of perfusing cardiac rhythm. I remained at the bedside for approximately 120 minutes providing bedside care. A central line was placed and the patient was started on IV pressor support. The patient experienced a repeat episode of cardiac arrest with return of perfusing cardiac rhythm after initiation of ACLS protocol. The patient experienced a repeat episode of cardiac arrest. The patient was found to have absent brainstem reflexes on neurologic exam. Patient pupils are fixed and dilated. Lung exam revealed absent lung sounds. On cardiac exam asystole was noted on petal cutter. The patient was pronounced at 1910 hrs. Advanced care planning conducted. Bereavement support offered. Patient is at bedside.
--- NOTE | 2021-11-19 21:01 | Event Note ---
Date: 11/19/21 responded to critical care consult unfortunately patient went into multiple cardiac arrests prior to my arrival and there was no return of spontaneous circulation
[2021-11-19] MEDS ORDERED: ZINC SULFATE 220 MG CAP PO SCH (22:00)
[2021-11-19] MEDS ORDERED: ASCORBIC ACID 500 MG TAB PO SCH (22:00)
[2021-11-19] MEDS ORDERED: HEPARIN 5,000 UNIT/1 ML VIAL SUB-Q SCH (22:00)
[2021-11-20] MEDS ORDERED: CHOLECALCIFEROL (VIT D3) 1000 UNIT (25 mcg) TAB PO SCH (10:00)
[2021-11-20] MEDS ORDERED: cefTRIAXone/NS 2 GM/100 ML 2 GM/100 ML BAG IV SCH (14:00)
[2021-11-20] MEDS ORDERED: AZITHROMYCIN/NS 500 MG/250 ML 500 MG/250 ML BAG IV SCH (15:00)
--- NOTE | 2021-11-21 12:56 | Electrocardiograph Report ---
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
== END 2021-11-19 23:14 | DRG 871 ==
LOC: ED 11:53 → CC1 17:47
PROVIDERS: ADMIT Internal Medicine; ATTEND Internal Medicine
PROC: 5A1935Z Respiratory Ventilation, Less than 24 Consecutive Hours (ICD-10-PCS; principal; 2021-11-19)
PROC: 0BH17EZ Insertion of Endotracheal Airway into Trachea, Via Natural or Artificial Opening (ICD-10-PCS; 2021-11-19)
PROC: 06HM33Z Insertion of Infusion Device into Right Femoral Vein, Percutaneous Approach (ICD-10-PCS; 2021-11-19)
PROC: B54BZZA Ultrasonography of Right Lower Extremity Veins, Guidance (ICD-10-PCS; 2021-11-19)
PROC: 4A033R1 Measurement of Arterial Saturation, Peripheral, Percutaneous Approach (ICD-10-PCS; 2021-11-19)
PROC: 5A09357 Assistance with Respiratory Ventilation, Less than 24 Consecutive Hours, Continuous Positive Airway Pressure (ICD-10-PCS; 2021-11-19)
DX: A41.9 Sepsis, unspecified organism (principal); J96.01 Acute respiratory failure with hypoxia; J18.9 Pneumonia, unspecified organism; G92.8 Other toxic encephalopathy; N17.9 Acute kidney failure, unspecified; E87.2 Acidosis; Z20.822 Contact with and (suspected) exposure to COVID-19; I25.10 Atherosclerotic heart disease of native coronary artery without angina pectoris; E11.65 Type 2 diabetes mellitus with hyperglycemia; Z82.49 Family history of ischemic heart disease and other diseases of the circulatory system
CPT/HCPCS: 36415; 36600; 71045; 80048; 80076; 81001; 82140; 82728; 82803; 82947; 83615; 83690; 83735; 83880; 84145; 84484; 85025; 85379; 85610; 85730; 86140; 87040; 87070; 87205; 93005; 94002; G0378; J3490; J7060; Q0162; J0171; J0282; J0456; J0696; J1100; J2704; J2920; J3370; J7030; J7040